=== PATIENT | male | born 1960 | race Caucasian/White ===

== ENCOUNTER 2018-06-26 13:35 | Outpatient (CLI) | payer BC ==
[2018-06-26] MEDS ORDERED: Gadobenate Dimeglumine 529 MG/1 ML (20ML VIAL) ONE (16:34)
--- NOTE | 2018-06-27 11:30 | MRI ---
PROSTATE MRI WITHOUT AND WITH CONTRAST: HISTORY: A 57-year-old male with elevated PSA. The patient had a biopsy 6 months ago which was negative. TECHNIQUE: Multiplanar, multisequence MR images were obtained of the pelvis/prostate without and with IV contras t. FINDINGS: There is moderate hypertrophy of the central gland consistent with BPH. Multiple hyperplastic nodule s are seen in the central gland. Near the base of the prostate, one of these nodules is well circums cribed with a low T2 signal. This has a well circumscribed border and would be considered a PIRADS c ategory 2 lesion. There is also a well circumscribed low T2 signal intensity well circumscribed nodu le near the apex of the prostate on the right measuring 1.6 cm in size. This also is a PIRADS catego ry 2 lesion. No lesions are identified in the peripheral zone of the prostate. No restricted diffusion or low sig nal is seen on the ADC map within the prostate. There is significant artifact on the diffusion seque nces secondary to air in the rectum. The seminal vessels are intact. The neurovascular bundles are intact. No pelvic adenopathy is seen. No marrow signal abnormality is present. IMPRESSION: PIRADS category 2 - low likelihood that a clinically significant cancer is present. POS: [facility]
== END 2018-06-26 13:36 | disposition home or self-care (01) ==
LOC: TBSIIMAG 13:35
PROVIDERS: ATTEND Urology
DX: R97.20 Elevated prostate specific antigen [PSA] (principal)
CPT/HCPCS: 72197; A9579

== ENCOUNTER 2021-01-23 03:49 | Emergency (ER) | payer BC ==
[2021-01-23 04:54] LABS: Bilirubin Negative (Negative); Blood, Urine Negative (Negative); Glucose, Urine (Dipstick) Negative (Negative); Ketone, Urine Negative (Negative); Leukocyte Negative (Negative); Nitrite Negative (Negative); Protein, Urine (Dipstick) Negative (Neg-Trace); Urobilinogen 0.2 mg/dL (Less than 2); pH, Urine 6.5 (5.0-9.0)
[2021-01-23 04:56] LABS: Clarity Clear (Clear)
== END 2021-01-23 05:27 | disposition home or self-care (01) ==
LOC: ERS 03:49
DX: N40.1 Benign prostatic hyperplasia with lower urinary tract symptoms (principal); R33.8 Other retention of urine
CPT/HCPCS: 51702; 81003

== ENCOUNTER 2023-08-22 05:55 | Day surgery (SDC) | payer BC ==
[2023-08-15 10:11] VITALS: BMI 23.6
[2023-08-22] MEDS ORDERED: Sodium Chloride 0.9% 100 ML ONE (06:10)
[2023-08-22] MEDS ORDERED: cefTRIAXone (ROCEPHIN) 2 GM VIAL ONE (06:10)
[2023-08-22] MEDS ORDERED: LevoFLOXacin D5W 500 mg (100 mL) BAG ONE (06:10)
[2023-08-22] MEDS ORDERED: PROPOFOL 20 ML ONE ×2 (06:50→07:30)
[2023-08-22] MEDS ORDERED: fentaNYL PF 100 MCG/2 ML SYRINGE ONE (06:50)
[2023-08-22] MEDS ORDERED: Lidocaine 1% PF 5 ML VIAL ONE (07:37)
[2023-08-22] MEDS ORDERED: Oxybutynin 5 MG TAB ONE (10:16)
[2023-08-22] MEDS ORDERED: Phenazopyridine HCl 100 MG TAB ONE (10:16)
== END 2023-08-22 10:50 | disposition home or self-care (01) ==
LOC: SDC 05:55
PROVIDERS: ATTEND Urology
PROC: 0VB08ZX Excision of Prostate, Via Natural or Artificial Opening Endoscopic, Diagnostic (ICD-10-PCS; principal; 2023-08-22)
DX: N40.1 Benign prostatic hyperplasia with lower urinary tract symptoms (principal); R97.20 Elevated prostate specific antigen [PSA]
CPT/HCPCS: 88341; 88342; G0416; J0696; J1956; J2704; J3490

== ENCOUNTER 2024-06-16 09:47 | Outpatient (CLI) | payer BC | END 2024-06-16 09:48 | disposition home or self-care (01) | LOC: RAD 09:47 | PROVIDERS: ATTEND Internal Medicine | DX: R06.00 Dyspnea, unspecified (principal) | CPT/HCPCS: 71046 ==